=== PATIENT | female | born 1990 | race African-American/Black ===

== ENCOUNTER 2017-03-26 17:48 | Emergency (ER) | payer BC ==
[~2017-03-26 17:48] MED LIST: MOTRIN600 MG PO; PERCOCET 5/3251 TA1 PO; PRENATAL COMPLE1 TAB PO
== END 2017-03-26 19:59 | disposition home or self-care (01) ==
LOC: D.ER 17:48
DX: S20.211A Contusion of right front wall of thorax, initial encounter (principal); X58.XXXA Exposure to other specified factors, initial encounter; Y93.89 Activity, other specified; Y92.89 Other specified places as the place of occurrence of the external cause

== ENCOUNTER 2018-05-27 10:29 | Emergency (ER) | payer SELFPAY ==
[~2018-05-27] VITALS: Ht 149.9 cm; Wt 53.2 kg
[2018-05-27 10:56] VITALS: Ht 149.9 cm; Wt 53.2 kg
[2018-05-27 12:15] VITALS: BP 136/84
== END 2018-05-27 12:16 | disposition home or self-care (01) ==
LOC: D.ER 10:29
DX: S00.12XA Contusion of left eyelid and periocular area, initial encounter (principal); Y04.2XXA Assault by strike against or bumped into by another person, initial encounter; Y93.89 Activity, other specified; Y92.89 Other specified places as the place of occurrence of the external cause; F17.200 Nicotine dependence, unspecified, uncomplicated

== ENCOUNTER 2018-05-31 16:35 | Emergency (ER) | payer SELFPAY ==
[~2018-05-31] VITALS: Ht 149.9 cm; Wt 52.3 kg
[2018-05-31 16:47] VITALS: BP 137/61; Ht 149.9 cm; Wt 52.3 kg
== END 2018-05-31 18:15 | disposition left against medical advice (07) ==
LOC: D.ER 16:35
DX: H57.12 Ocular pain, left eye (principal)

== ENCOUNTER 2019-11-03 13:24 | Emergency (ER) | payer SELFPAY ==
[~2019-11-03] VITALS: Ht 152.4 cm; Wt 47.7 kg
[2019-11-03 13:29] VITALS: BP 115/76; Ht 152.4 cm; Wt 47.7 kg
== END 2019-11-03 15:52 | disposition home or self-care (01) ==
LOC: D.ER 13:24
DX: R51 Headache (principal); T76.11XA Adult physical abuse, suspected, initial encounter; Y09 Assault by unspecified means

== ENCOUNTER 2020-03-16 11:30 | Observation (INO) | payer MEDICAID ==
[~2020-03-16] VITALS: Ht 152.4 cm; Wt 54.5 kg
[2020-03-16] VITALS (7 sets, daily range): BP systolic 114–139; BP diastolic 65–79; Ht 152.4 cm; Wt 54.5 kg
[2020-03-16 11:56] LABS: BASOPHILS 0.8 % (0-2); EOSINOPHILS 2.4 % (0-7); HEMATOCRIT 35.2 % (36.0-48.0); HEMOGLOBIN 11.3 g/dL (12-16); IMMATURE GRANULOCYTES 0.2 % (0-5); LYMPHOCYTES 41.3 % (15-50); MCH 28.8 pg (26.0-34.0); MCHC 32.1 g/dL (31.0-37.0); MCV 89.6 fL (80.0-100.0); MEAN PLATELET VOLUME 9.1 fL (7.4-10.4); MONOCYTES 9.2 % (2-11); NEUTROPHILS 46.1 % (40-80); PLATELET COUNT 355 10x3/uL (130-400); RBC 3.93 10x6/uL (4.00-5.40); WBC 6.3 10x3/uL (4.8-10.8)
[2020-03-16 12:08] LABS: CALC OSMOLALITY 276 mosm/kg (275-300); CALCIUM 8.6 mg/dL (8.5-10.1); CARBON DIOXIDE 26.5 mmol/L (21.0-32.0); CHLORIDE - SERUM 105 mmol/L (98-107); CREATININE - SERUM 1.2 mg/dL (0.6-1.3); GLUCOSE 92 mg/dL (74-106); POTASSIUM - SERUM 3.8 mmol/L (3.5-5.1); SODIUM 138 mmol/L (136-145); UREA NITROGEN 15 mg/dL (7-18); eGFR NON AFRICAN AMERICAN 57 mL/min (90-120)
[2020-03-16 12:16] LABS: APTT 30.4 SECONDS (22.8-39.4)
[2020-03-16 12:17] LABS: D-DIMER-QUANTITATIVE 0.29 ug/mLFEU (0.20-0.54); INR 0.93 (0.85-1.17); PROTIME 12.5 SECONDS (11.6-15.0)
[2020-03-16 12:17] LABS: ALBUMIN 3.4 g/dL (3.4-5.0); ALKALINE PHOSPHATASE 68 U/L (30-120); ALT (SGPT) 20 U/L (10-68); AMYLASE - SERUM 83 U/L (25-115); BILIRUBIN - TOTAL 0.19 mg/dL (0.2-1.3); LIPASE 149 U/L (73-393); PROTEIN - SERUM 7.5 g/dL (6.4-8.2); TROPONIN-I < 0.017 ng/mL (0.000-0.060)
[2020-03-16 12:27] LABS: CKMB 0.7 U/L (0.0-3.6); CREATINE KINASE 119 UL (21-215)
--- NOTE | 2020-03-16 13:00 | NUR ---
PT IS AWAKE IN BED, MOOD IS HIGHLY IMPROVED, SHE IS JOKING WITH FAMILY AND STATES THAT SHE IS FEELING BETTER THAT WHEN SHE FIRST CAME IN. MIRELAM INFUSING TO PIV, VSS, VALERIE NOTED, CALL LIGHT IN REACH.
[2020-03-16 13:54] LABS: BILIRUBIN NEGATIVE (NEGATIVE); KETONE NEGATIVE (NEGATIVE); NITRITE NEGATIVE (NEGATIVE); UROBILINOGEN NORMAL mg/dL (< 2)
[2020-03-16 13:55] LABS: HCG URINE NEGATIVE (NEGATIVE)
[2020-03-16 16:51] LABS: MAGNESIUM - SERUM 1.9 mg/dL (1.8-2.4); THYROID STIMULATING HORMONE 0.69 uIU/mL (0.36-3.74)
[2020-03-16] MEDS ORDERED: BUSPAR10 MG PO (16:54)
--- NOTE | 2020-03-16 17:15 | NUR ---
RECEIVED PT TO ROOM 2121, VIA WHEELCHAIR, PT A/O X4, RESP EVEN AND NONLABORED ON RA. RT AC INFUSING CARDIZEM AT 10CC/HR. WILL ASSESS PT AND START PLAN OF CARE.
[2020-03-16 17:40] LABS: UDS - AMPHET NEGATIVE QUAL (NEGATIVE); UDS - BARB NEGATIVE QUAL (NEGATIVE); UDS - BENZO NEGATIVE QUAL (NEGATIVE); UDS - COCAINE NEGATIVE QUAL (NEGATIVE); UDS - OPIATE NEGATIVE QUAL (NEGATIVE); UDS - PCP NEGATIVE QUAL (NEGATIVE); UDS - THC NEGATIVE QUAL (NEGATIVE)
[2020-03-16 19:28] LABS: CKMB 0.8 U/L (0.0-3.6); CREATINE KINASE 114 UL (21-215); TROPONIN-I < 0.017 ng/mL (0.000-0.060)
--- NOTE | 2020-03-16 20:18 | NUR ---
INITIAL REPORT AND ROUNDS COMPLETED. SEE ASSESSMENTS. PT RESTING IN BED WITH NO DISTRESS. CALL LIGHT IN REACH. CPOC. PT STATES SHE ACCIDENTALLY PULLED OUT HER IV WHILE BRUSHING HER HAIR. IV CARDIZEM OFF WHILE NEW IV SITED.
--- NOTE | 2020-03-16 22:24 | NUR ---
PT HAS BEEN UP AND OUT OF ROOM, HAS TAKEN A SHOWER. EATEN PIZZA, ALL WHILE NURSE TRYING TO KEEP HER IN ROOM LONG ENOUGHT TO GET A NEW IV SITED. IV TO RFA 22G SITED NOW AND CARDIZEM DRIP AT 10ML/HR RESTARTED AT 2215. TELEMETRY. [address] FATHER IN LAW AT BEDSIDE. CALL LIGHT IN REACH.
--- NOTE | 2020-03-16 23:18 | NUR ---
AFTER PT WAS TUCKED IN FOR THE NIGHT, WITH IV CARDIZEM INFUSING, WITHIN 30 MINUTES SHE WAS BACK UP AND HEADING DOWN THE HALLWAY WITH HER IV POLE AND HER FATHER IN LAW TO GET SOME " FRESH AIR". LAB LOOKING FOR HER TO DRAW SERIAL CARDIAC ENZYMES. DIRECTED LAB TO GET ALL LABS AT ONE TIME IN AM SINCE PATIENT CANNOT SEEM TO STAY IN HER ROOM.
[2020-03-17 04:45] VITALS: BP 87/39
--- NOTE | 2020-03-17 07:12 | NUR ---
REPORT TO ONCOMING NURSE. PT HAS REFUSED AM LABS TO DENTAL DIRECTOR BECAUSE SHE WAS UPSET ABOUT BEING AWAKENED. IV CARDIZEM INFUSING AT 5ML/HR TO RFA, STILL RUNNING SR/ST 90-105. CPOC. CALL LIGHT IN REACH. FATHER IN LAW AT BEDSIDE.
[2020-03-17 08:18] VITALS: BP 107/70
--- NOTE | 2020-03-17 09:28 | NUR ---
I WAS COMING OUT OF ANOTHER PT'S ROOM,THIS NURSE SAW PT WALKING OUT WITH ALL BELONGINGS, ASKED PT WHERE SHE WAS GOING AND PT STATED " I AM MISSING LATTER DAY TODAY, I HAVE THINGS TO DO." INFORMED PT THAT SHE WOULD HAVE TO SIGN A FORM WHICH STATES THAT SHE IS LEAVING AGAINST MEDICAL ADVICE. PT SIGNED FORM AND LEFT WITH ALL BELONGINGS, IV WAS REMOVED BY PT AND LEFT IN THE ROOM WITH CATHETER TIP INTACT.
--- NOTE | 2020-03-17 09:31 | NUR ---
0921- NOTIFIED SURJIT TONY ABOUT PT LEAVING AMA.
== END 2020-03-17 09:31 | disposition left against medical advice (07) ==
LOC: D.ER 11:30 → OBSVTIME 12:58 → D.EDHOLD 12:58 → D.M2 16:45
PROVIDERS: Family Medicine; ADMIT Family Medicine; ATTEND Family Medicine
DX: R10.9 Unspecified abdominal pain (principal); I48.92 Unspecified atrial flutter; K59.00 Constipation, unspecified; R07.9 Chest pain, unspecified